=== PATIENT | female | born 1970 | race Caucasian/White ===

== ENCOUNTER 2019-02-01 06:00 | Outpatient (RCR) | payer OTHER, SELFPAY | END 2019-03-03 00:01 | LOC: WPT 06:00 | PROVIDERS: Family Provider Nurse Practitioner; Visit Provider Licensed Practical Nurse | DX: M51.17 Intervertebral disc disorders with radiculopathy, lumbosacral region (principal) | CPT/HCPCS: 97110 ×7; 97112 ×3; 97140 ==

== ENCOUNTER 2019-03-06 | Outpatient (RCR) | payer OTHER, SELFPAY | END 2019-05-14 | disposition home or self-care (01) | LOC: WPT | PROVIDERS: PCP Nurse Practitioner; Visit Provider Licensed Practical Nurse | DX: M54.5 Low back pain (principal) | CPT/HCPCS: 97110 ==

== ENCOUNTER 2019-08-12 14:42 | Outpatient (CLI) | payer OTHER, SELFPAY ==
--- NOTE | 2019-08-12 14:50 | MM_ITS ---
WS: [id number] BILATERAL SCREENING DIGITAL MAMMOGRAM WITH CAD HISTORY: SCREENING COMPARISON: 04/02/2018 and 03/26/2017 Bilateral CC and MLO views submitted. Computer aided detection analyzed. Breast composition: The breasts are heterogeneously dense, which may obscure small masses. No suspici ous masses, microcalcifications or architectural distortion. Benign calcifications in each breast. MM/[place] [id number] IMPRESSION: BI-RADS: 2-Benign FOLLOW UP: 1 Year Follow-up
== END 2019-08-12 14:43 | disposition home or self-care (01) ==
LOC: RADSHAW 14:46
PROVIDERS: PCP Nurse Practitioner; Visit Provider Nurse Practitioner
DX: Z12.31 Encounter for screening mammogram for malignant neoplasm of breast (principal)
CPT/HCPCS: 77067

== ENCOUNTER 2020-08-19 13:06 | Outpatient (CLI) | payer OTHER, SELFPAY ==
--- NOTE | 2020-08-19 13:14 | MM_ITS ---
WS: [id number] Exam: [place] [id number] Date/Time of Exam: 08/19/2020 1:19 PM Reason For Exam: SCREENING VIEWS: MLO and CC views both breasts. Comparison made with prior exam of 08/12/2019, 04/02/2018 and 03/26/2017. Findings: There was no sign of mass, architectural distortion or suspicious calcification in either breast. He terogeneously dense MM/[place] [id number] Impression: BI-RADS: 2-Benign FOLLOW-UP: 1 Year Follow-up This mammogram was also analyzed by the Computer Aided Detection System R2 Imag e Digital Program Manager.
== END 2020-08-19 13:07 | disposition home or self-care (01) ==
PROVIDERS: PCP Nurse Practitioner; Visit Provider Nurse Practitioner
DX: Z12.31 Encounter for screening mammogram for malignant neoplasm of breast (principal)
CPT/HCPCS: 77067

== ENCOUNTER → 2020-10-18 13:05 | Outpatient (BNVA) | payer OTHER, SELFPAY | PROVIDERS: PCP Nurse Practitioner; Visit Provider Podiatrist Foot & Ankle Surgery | DX: M79.673 Pain in unspecified foot (principal); M77.32 Calcaneal spur, left foot | CPT/HCPCS: 73630 ==

== ENCOUNTER → 2021-08-29 09:58 | Outpatient (BNVA) | payer OTHER, SELFPAY | PROVIDERS: PCP Nurse Practitioner; Visit Provider Surgery | DX: Z12.11 Encounter for screening for malignant neoplasm of colon (principal) | CPT/HCPCS: 99203 ==

== ENCOUNTER 2021-09-15 09:27 | Day surgery (SDC) | payer OTHER, SELFPAY ==
[2021-09-13 15:52] VITALS: BMI 29.0
[2021-09-15 09:41] VITALS: BP 106/90; PULSE 82; RESP 20; TEMP 36.6; O2SAT 100
[2021-09-15] MEDS: sodium chloride 0.9% 1,000 ML 30 ML IV (09:45)
--- NOTE | 2021-09-15 10:45 | ANES.PREANE2 ---
Pre-Anesthetic Assessment Height/Weight: Height 1.63 m Weight 76.657 kg Temp Pulse Resp BP Pulse Ox 97.8 F 82 20 H 106/90 100 09/15/21 09:41 09/15/21 09:41 09/15/21 09:41 09/15/21 09:41 09/15/21 09:41 Preop Diagnosis: screening Operation Date: 09/15/21 11:00 Proposed Procedures p Colonoscopy 70884,Z12.11(Not Applicable) - Vincent Lovell DO Familial anesthetic complications: none Was Beta Slade taken within 24 hours: N/A Was Clonidine taken within 24 hours: N/A Last intake: Intake Last Liquid Date 09/14/21 Last Liquid Time 23:00 Last Solid Date 09/13/21 Last Solid Time 17:00 Social No alcohol and No tobacco Airway Submandibular: within normal limits Cervical ROM: within normal limits Mallampati: Class II Dentition: full Pulmonary None reported CV/HEM None reported None reported Hepatic None reported GI None reported Metabolic None reported Musc/skel Fibromyalgia, Osteoarthritis/DJD and Rheumatoid Arthritis Neuropsych None reported Anesthetic Plan ASA status: 2 Anesthesia: Anesthesia Evaluation and MAC Other: I discussed with the patient risks, goals, and benefits of MAC and general anesthesia. We discussed spectrum of MAC anesthesia including conversion to general as well as possibility of recall of intraoperative stimuli including discomfort/pain. Patient agrees to proceed with MAC. Risk of > 500 ml blood loss (7ml/kg in children): No Other Pertinent Information Propofol burn with injection, prefers lidocaine first Medications/Allergies Home Medications Medication Instructions Recorded Confirmed Last Taken Type Custom Molded Orthotics Bilaterally #1 ea 10/18/20 09/15/21 Unknown Rx cholecalciferol (vitamin D3) 50 50 mcg PO DAILY 10/18/20 09/15/21 09/12/21 History mcg (2,000 unit) capsule omega-3 fatty acids-fish oil 300 1 cap PO BID cap 10/18/20 09/15/21 09/12/21 History mg-500 mg capsule (Fish Oil) sumatriptan succinate 50 mg tablet 50 mg PO Q2H PRN 10/18/20 09/15/21 2 Weeks Ago History ~09/01/21 Allergies Allergy/AdvReac Type Severity Reaction Status Date / Time hydrocortisone Allergy Mild Rash Verified 09/15/21 09:38 Current Medications Generic Name Dose Route Start Last Admin Trade Name Freq PRN Reason Stop Dose Admin Sodium Chloride 1,000 mls @ 30 mls/hr 09/15/21 09:30 09/15/21 09:45 Sodium Chloride 0.9% IV 09/16/21 09:29 30 mls/hr .Q24H PRESLEY Administration PFSH Anesthesia Medical History Acute contact dermatitis Cystitis Fibromyalgia Low back pain Migraine Rheumatoid arthritis Surgical History H/O: hysterectomy S/P foot surgery, right Family History Grandmother Colon polyp Social History Smoking and tobacco status: never smoked Second hand smoke exposure: No Smoking risk assessment/counseling performed?: No Alcohol intake: current Alcohol intake frequency: few times a week Alcohol type: wine Desire information about alcohol rehabilitation?: No Counseling given: No Data Anesthesia Cardiac Studies: No Data to Display
--- NOTE | 2021-09-15 11:09 | W.PM.OPSUD ---
Surgery/Procedure H&P Update DATE OF PROCEDURE: September 15, 2021 DATE H&P PERFORMED: 08/29/21 CHANGES TO PREVIOUS DOCUMENTATION: none PREOP DIAGNOSIS: screening PLANNED PROCEDURE: Operation Date: 09/15/21 11:00 Proposed Procedures p Colonoscopy 99118,Z12.11(Not Applicable) - Vincent Lovell DO
[2021-09-15 12:09] VITALS: BP 132/82; PULSE 70; RESP 16; TEMP 36.4; O2SAT 98
[2021-09-15 12:16] VITALS: BP 123/88; PULSE 76; RESP 18; O2SAT 100
[2021-09-15] MEDS: ondansetron 2 mg/ML SDV 2 mL 4 MG IVP (12:27)
--- NOTE | 2021-09-15 12:28 | PC.NURSE ---
patient nauseated. belching. zofran 4mg given ivp. bowel sounds active x4
[2021-09-15 12:30] VITALS: BP 134/88; PULSE 64; RESP 18; O2SAT 100
--- NOTE | 2021-09-15 12:34 | PC.NURSE ---
assisted patient up to the bathroom, continues to belch and passing gas
--- NOTE | 2021-09-15 12:35 | PC.NURSE ---
patient states nausea has subsided
--- NOTE | 2021-09-15 12:40 | PC.NURSE ---
patient remains on toilet. continues to pass flatus and belch
--- NOTE | 2021-09-15 12:56 | PC.NURSE ---
assisted back to bed. patient states she feels better
--- NOTE | 2021-09-15 14:43 | ANE.PACU2 ---
Inpatient post-anesthesia follow up: Airway intact: Yes Vital signs: Temperature 97.5 F Pulse Rate 64 Respiratory Rate 18 Blood Pressure 134/88 Pulse Oximetry 100 Oxygen Delivery Me thod Room Air Oxygen Flow Rate Fraction of Inspir ed Oxygen Hydration adequate: Yes Nausea and vomiting: No Pain level: 1 Mental status: Baseline
== END 2021-09-15 13:05 | disposition home or self-care (01) ==
PROVIDERS: PCP Nurse Practitioner; Visit Provider Surgery
PROC: 0DJD8ZZ Inspection of Lower Intestinal Tract, Via Natural or Artificial Opening Endoscopic (ICD-10-PCS; CPT 45378; principal; 2021-09-15 11:00)
DX: Z12.11 Encounter for screening for malignant neoplasm of colon (principal); D12.5 Benign neoplasm of sigmoid colon; M79.7 Fibromyalgia
CPT/HCPCS: 45385; 88305; J2405; J2704; J7030

== ENCOUNTER → 2021-09-29 12:20 | Outpatient (BNVA) | payer OTHER, SELFPAY | PROVIDERS: PCP Nurse Practitioner; Visit Provider Surgery | DX: Z09 Encounter for follow-up examination after completed treatment for conditions other than malignant neoplasm (principal); D12.6 Benign neoplasm of colon, unspecified | CPT/HCPCS: 99212 ==

== ENCOUNTER 2021-10-04 13:02 | Outpatient (CLI) | payer OTHER, SELFPAY ==
--- NOTE | 2021-10-04 13:11 | MM_ITS ---
WS: [id number] BILATERAL 3D TOMOSYNTHESIS DIGITAL SCREENING MAMMOGRAPHY WITH CAD CLINICAL INFORMATION: SCREENING HISTORY: Screening mammogram. No current complaints. COMPARISON: August 19, 2020 TECHNIQUE: Bilateral CC and MLO views. FINDINGS: The breasts are composed of heterogeneous fibroglandular density tissue, which can limit the detectio n of small underlying mass lesions. No suspicious mass, asymmetry, calcifications, or architectural d istortion. A few incidental punctate calcifications. No evidence of malignancy. MM/[place] [id number] IMPRESSION: BI-RADS: 2-Benign FOLLOW UP: 1 Year Follow-up Recommend return to annual screening mammography.
== END 2021-10-04 13:03 | disposition home or self-care (01) ==
LOC: RAD 13:03
PROVIDERS: PCP Nurse Practitioner; Visit Provider Nurse Practitioner
DX: Z12.31 Encounter for screening mammogram for malignant neoplasm of breast (principal)
CPT/HCPCS: 77063; 77067

== ENCOUNTER 2022-04-06 11:48 | Outpatient (CLI) | payer OTHER, SELFPAY ==
[2022-04-06 12:14] VITALS: BMI 28.8
--- NOTE | 2022-04-06 12:14 | ECG_ITS ---
[facility] Test Date: 2022-04-06 Pat Name: Sharon Franco Department: Room: Gender: Female Poultry Hanger: : 1970 Requested By: Feli Mejia Order Number: [id number] Giana MD: Juan Beckman M.D. Interpretive Statements NAME OF STUDY: TREADMILL STRESS TEST INDICATION: [Chest Pain, ] EXERCISE DATA: The patient was exercised by Tony protocol. Baseline heart rate was 97 beats per minute. Baseline blood pressure was 117/89 millimeters of mercury. Target heart rate was 142 beats per minute. Maximum heart rate achieved was 176, which was 123% of the target heart rate. Maximum blood pressure was 154/104 millimeters of mercury. Total exercise time was 8 minutes 58 seconds. Maximum METs achieved was 10.2. The reason for ending the test was maximal effort achieved. The patient complained of shortness of breath during the stress test, which then resolved at the end of the test. ELECTROCARDIOGRAM: BASELINE: Showed sinus rhythm, normal axis, no significant ST-T changes at the baseline noted. [] EXERCISE: At the peak exercise level, [] No significant ST-T changes suggestive of ischemia noted. [] RECOVERY: During the recovery period, heart rate dropped appropriately. No significant ST-T changes in the recovery suggestive of ischemia noted. [] CONCLUSION: 1. Exercise capacity good. 2. Heart rate response was appropriate. 3. Blood pressure response was appropriate. 4. Symptoms not suggestive of ischemia. 5. Exercise stress test is normal and is negative for ischemia. Electronically Signed On 04-28-2022 23:03:32 FACILITIES MAINTENANCE ASSISTANT by Juan Beckman M.D. [email or web address]
[2022-04-06 12:52] VITALS: BP 185/66; PULSE 112
== END 2022-04-06 11:49 | disposition home or self-care (01) ==
LOC: CDL 11:50
PROVIDERS: PCP Nurse Practitioner; Visit Provider Nurse Practitioner
DX: R07.9 Chest pain, unspecified (principal)
CPT/HCPCS: 93017

== ENCOUNTER 2022-10-25 09:50 | Outpatient (CLI) | payer OTHER, SELFPAY ==
--- NOTE | 2022-10-25 09:55 | MM_ITS ---
WS: [id number] SCREENING DIGITAL BREAST TOMOSYNTHESIS MAMMOGRAM WITH CAD HISTORY: SCREENING COMPARISON: 10/04/2021, 08/19/2020 Bilateral CC and MLO with tomosynthesis and synthetic mammography submitted. Computer aided detection analyzed. Breast composition: The breasts are heterogeneously dense, which may obscure small masses. Focal asym metry measuring 10 mm in the anterior RIGHT breast just above the nipple line. Not definitely seen on the CC projection. Additional imaging necessary. IMPRESSION: MM/[place] [id number] BI-RADS: 0-Incomplete: Need additional imaging evaluation FOLLOW UP: Need Additional Imaging RIGHT breast: Spot compression views (CC and MLO). True ML. Ultrasound to follo w if abnormality persists.
== END 2022-10-25 09:51 | disposition home or self-care (01) ==
LOC: RAD 09:52 → MOBLMAM 09:52
PROVIDERS: PCP Nurse Practitioner; Visit Provider Nurse Practitioner
DX: Z12.31 Encounter for screening mammogram for malignant neoplasm of breast (principal)
CPT/HCPCS: 77063; 77067

== ENCOUNTER → 2022-11-19 13:30 | Outpatient (BNVA) | payer OTHER, SELFPAY | PROVIDERS: PCP Nurse Practitioner; Referring Provider Nurse Practitioner; Visit Provider Surgery | DX: R74.8 Abnormal levels of other serum enzymes (principal); K80.20 Calculus of gallbladder without cholecystitis without obstruction | CPT/HCPCS: 80076; 99203; 99214 ==

== ENCOUNTER 2022-12-04 08:02 | Outpatient (CLI) | payer OTHER, SELFPAY ==
--- NOTE | 2022-12-04 08:36 | MM_ITS ---
WS: [id number] ADDITIONAL VIEWS RIGHT MAMMOGRAM WITH DIGITAL BREAST TOMOSYNTHESIS. RIGHT BREAST ULTRASOUND HISTORY: ABNORMAL MAMMO COMPARISON: 10/25/2022 and 10/04/2021 RIGHT MAMMOGRAM: Spot compression views and true ML with digital breast tomosynthesis and SM. Asymmetry persists but is ill-defined in the anterior RIGHT breast near 12:00. Maximum diameter of 9 mm. No distortion or calcifications. RIGHT BREAST ULTRASOUND 2-D and color Doppler imaging submitted. Ultrasound at 12:00 and in the anterior RIGHT breast demonstrates no shadowing mass or increased vasc ularity. There is very dense fibroglandular tissue. Cannot confirm a mass. IMPRESSION: MM/[place] [id number] BI-RADS: 2-Benign FOLLOW UP: 1 Year Follow-up
== END 2022-12-04 08:03 | disposition home or self-care (01) ==
PROVIDERS: PCP Nurse Practitioner; Visit Provider Nurse Practitioner
DX: R92.8 Other abnormal and inconclusive findings on diagnostic imaging of breast (principal)
CPT/HCPCS: 76642; 77061; G0279

== ENCOUNTER → 2023-02-06 13:50 | Outpatient (BNVA) | payer OTHER, SELFPAY | PROVIDERS: PCP Nurse Practitioner; Visit Provider Dermatology | DX: D23.72 Other benign neoplasm of skin of left lower limb, including hip (principal); L81.4 Other melanin hyperpigmentation; L57.3 Poikiloderma of Civatte; D22.39 Melanocytic nevi of other parts of face; D22.5 Melanocytic nevi of trunk | CPT/HCPCS: 99203 ==

== ENCOUNTER → 2023-03-05 10:50 | Outpatient (BNVA) | payer OTHER, SELFPAY | PROVIDERS: PCP Nurse Practitioner; Visit Provider Surgery | DX: K80.20 Calculus of gallbladder without cholecystitis without obstruction (principal) | CPT/HCPCS: 99213 ==

== ENCOUNTER 2023-12-05 11:23 | Outpatient (RCR) | payer OTHER, SELFPAY | END 2024-01-02 23:59 | disposition home or self-care (01) | LOC: SPT 11:23 | PROVIDERS: PCP Nurse Practitioner; Visit Provider Nurse Practitioner | DX: N94.10 Unspecified dyspareunia (principal) | CPT/HCPCS: 97110; 97161; 97530 ==

== ENCOUNTER 2023-12-11 11:16 | Outpatient (CLI) | payer OTHER, SELFPAY ==
--- NOTE | 2023-12-11 11:18 | MM_ITS ---
WS: [id number] SCREENING DIGITAL BREAST TOMOSYNTHESIS MAMMOGRAM WITH CAD HISTORY: SCREENING COMPARISON: 12/04/2022, 10/25/2022, 08/19/2020 and 10/04/2021 Bilateral CC and MLO with tomosynthesis and synthetic mammography submitted. Computer aided detection analyzed. Breast composition: The breasts are heterogeneously dense, which may obscure small masses. New focal asymmetry in the lateral LEFT breast above the nipple line seen best on the lateral projection. There is mild distortion of the soft tissues. Additional scattered asymmetries appear to be stable. Benign calcifications. MM/MM scr tomosynthesis [id number] IMPRESSION: BI-RADS: 0 - Incomplete: Need additional imaging evaluation FOLLOW UP: Need Additional Imaging LEFT breast: Spot compression views (CC and MLO). True ML. Ultrasound to follow if abnormality persists.
== END 2023-12-11 11:17 | disposition home or self-care (01) ==
LOC: RAD 11:16
PROVIDERS: PCP Nurse Practitioner; Visit Provider Nurse Practitioner
DX: Z12.31 Encounter for screening mammogram for malignant neoplasm of breast (principal)
CPT/HCPCS: 77063; 77067

== ENCOUNTER 2024-01-03 06:00 | Outpatient (RCR) | payer OTHER, SELFPAY | END 2024-02-01 23:59 | disposition home or self-care (01) | LOC: SPT 06:00 | PROVIDERS: PCP Nurse Practitioner; Visit Provider Nurse Practitioner | DX: N94.10 Unspecified dyspareunia (principal); N39.46 Mixed incontinence | CPT/HCPCS: 97110; 97530 ==

== ENCOUNTER 2024-01-20 10:47 | Outpatient (CLI) | payer OTHER, SELFPAY ==
--- NOTE | 2024-01-20 10:58 | MM_ITS ---
WS: [id number] ADDITIONAL VIEWS LEFT MAMMOGRAM WITH DIGITAL BREAST TOMOSYNTHESIS. HISTORY: INCONCLUSIVE MAMMO COMPARISON: 12/11/2023, 10/25/2022, 10/04/2021 Spot compression views LEFT breast in CC, MLO projections and true ML submitted with digital breast t omosynthesis and SM. The asymmetry and slight distortion noted on the screening mammogram of 12/11/2023 does not persist wi th additional imaging. This area was probably due to superimposed fibroglandular tissue. The breasts are very dense. MM/MM diag LT tomosynthesis [id number] IMPRESSION: BI-RADS: 2- Benign FOLLOW UP: 1 Year Follow-up Return to annual screening mammography. No persistent distortion.
== END 2024-01-20 10:48 | disposition home or self-care (01) ==
LOC: RAD 10:48
PROVIDERS: PCP Nurse Practitioner; Visit Provider Nurse Practitioner
DX: R92.8 Other abnormal and inconclusive findings on diagnostic imaging of breast (principal); R92.333 Mammographic heterogeneous density, bilateral breasts
CPT/HCPCS: 77061; G0279

== ENCOUNTER 2024-02-02 06:00 | Outpatient (RCR) | payer OTHER, SELFPAY | END 2024-03-03 23:59 | disposition home or self-care (01) | LOC: SPT 06:00 | PROVIDERS: PCP Nurse Practitioner; Visit Provider Nurse Practitioner | DX: N94.10 Unspecified dyspareunia (principal); N39.46 Mixed incontinence | CPT/HCPCS: 97110 ==

== ENCOUNTER 2024-03-04 06:30 | Outpatient (RCR) | payer OTHER, SELFPAY | END 2024-03-24 23:59 | disposition home or self-care (01) | LOC: SPT 06:30 | PROVIDERS: PCP Nurse Practitioner; Visit Provider Nurse Practitioner | DX: N94.10 Unspecified dyspareunia (principal) | CPT/HCPCS: 97110 ==

== ENCOUNTER 2025-02-12 11:01 | Outpatient (CLI) | payer OTHER, SELFPAY ==
--- NOTE | 2025-02-12 11:07 | MM_ITS ---
WS: [id number] BILATERAL 3D TOMOSYNTHESIS DIGITAL SCREENING MAMMOGRAPHY WITH CAD CLINICAL INFORMATION: ANNUAL SCREEN HISTORY: Screening mammogram. No current complaints. COMPARISON: 2023 TECHNIQUE: Bilateral CC and MLO views. FINDINGS: The breasts are composed of heterogeneous fibroglandular density tissue, which can limit the detection of small underlying mass lesions. No suspicious mass, asymmetry, or calcifications. Stable architectural distortion in the anterior RIGHT breast unchanged since 2021. No evidence of malignancy. MM/MM [facility] tomosynthesis [id number] IMPRESSION: DENSITY: The breasts are heterogeneously dense, which may obscure small masses. BI-RADS: 2 - Benign FOLLOW UP: 1 Year Follow-up Recommend return to annual screening mammography.
== END 2025-02-12 11:02 | disposition home or self-care (01) ==
LOC: RAD 11:04
PROVIDERS: PCP Nurse Practitioner; Visit Provider Nurse Practitioner
DX: Z12.31 Encounter for screening mammogram for malignant neoplasm of breast (principal); R92.333 Mammographic heterogeneous density, bilateral breasts; R92.323 Mammographic fibroglandular density, bilateral breasts; R92.8 Other abnormal and inconclusive findings on diagnostic imaging of breast
CPT/HCPCS: 77063; 77067